=== PATIENT | female | born 1970 | race Caucasian/White ===

== ENCOUNTER 2018-09-16 19:26 | Inpatient (IN) ==
[2018-09-17] MEDS ORDERED: ONDANSETRON INJ 2 MG/ML 2 ML VIAL IV PRN (00:02)
[2018-09-17] MEDS ORDERED: MAGNESIUM HYDROXIDE SUSP 30 ML UDC PO PRN (00:02)
[2018-09-17] MEDS ORDERED: ACETAMINOPHEN 325 MG TAB PO PRN (00:02)
[2018-09-17] MEDS ORDERED: ZOLPIDEM TARTRATE 5 MG TAB PO PRN (00:02)
[2018-09-17] MEDS ORDERED: ALUMINUM/MAGNESIUM SUSP 30 ML UDC PO PRN (00:02)
[2018-09-17] MEDS ORDERED: POLYETHYLENE (MIRALAX) 17 GM PACK PO PRN (00:02)
[2018-09-17] MEDS ORDERED: LORazepam 0.5 MG TAB PO PRN (00:05)
--- NOTE | 2018-09-17 00:07 | History & Physical Report ---
Date of Service September 17, 2018 Assessment & Plan (1) Weakness generalized: Jacky Collins is a 48 y.o female with history of LBBB, anxiety , hypertension, GERD, and IBS who transferred from [facility] for further evaluation of recent episodes of heart palpitations, sob, followed by loss of limb function that started 2 weeks. She is requiring admission on PCU/ Tele. 1. Weakness - Preceded by heart palpitations, sob, and Associated with loss of limb function -Acute in nature and has occurred twice within the last 5 days -Differential: Medication change related vs Brain lesion vs atypical absence seizure vs anxiety vs infectious Lyme/Ehrlichiosis vs Thyroid disorder vs connective tissue disorder vs vitamin deficiency -She is currently calm, coherent, and moving all extremities well -It could be that her recent change in medications and associated electrolyte abnormality of decreased K+ may have caused and underlying cardiac abnormality with trigger of anxiety, of which K+ will be repleted and pt should not resume HCTZ unless she has a K+ regimen -It may be that she has a brain lesion of which an MRI of brain will be helpful. -MRI brain w/wo contrast ordered and results pending. Neuro consulted and will appreciate recommendations. -It may be that she is having a seizure in which an EEG would be helpful. Will let neuro evaluate the pt to determine if EEG is needed -Consider anxiety/psych if other organic etiology ruled out. - Lyme Serology and Ehrlichiosis pending -TSH pending -JOSIAH pending -CBC, BMP, ESR, JOSIAH ordered -B12 and Folate ordered -EKG ordered -Can also consider ECHO to evaluate for valvular dysfunction -Pt admitted to Tele for close monitoring 2. HTN -Will hold Metoprolol and Lisinopril as she has pressure w/in normal limits ( 130s/70s) -Confirm Metoprolol dosing of 25mg with patient as this once daily dosing may impact her current symptoms 3. Anxiety -Currently asymptomatic -Lorazepam as needed per home regimen 4. GERD -Continue Protonix 5. LBBB -Present since age of 22 has been to label stitcher with negative findings -Continue to monitor on Tele 6. Hypokalemia -Will f/u on am labs -replete if needed FEN/GI Fluids: None Electrolytes: Monitor and replace as needed Nutriton: Heart healthy diet Activity: up with assist GI PPX: Protonix DVT PPX: Heparin Code Status: Full Code Dispo: Inpatient admission. Dispo to home when stable. (2) Heart palpitations: (3) Hypertension: (4) GERD (gastroesophageal reflux disease): History of Present Illness Chief Complaint: Chest palpitations, shortness of breath, weakness Primary Care Provider: DHRUV Farah with [facility] Jacky Collins is a 48 y.o female with history of LBBB, anxiety, hypertension, GERD, and IBS who transferred from [facility] for further evaluation of recent episodes of heart palpitations, sob, followed by loss of limb function that started 2 weeks. History per patient and who is at bedside. Two weeks ago Jacky was seen by PCP and it was thought that her blood pressure was not well controlled. At that time she was only on Metoprolol. The metoprolol was discontinued. Lisinopril and HCTZ were started. Apparently she was seen by her PCP on Tuesday 09/12 for a f/u appt and Lisinopril was discontinued with combined Losartan-HCTZ added. On Wednesday 09/13 she took Losartan-HCTZ. During the day she was driving with her in the car and started to have trouble breathing " feeling weird, having palpitations, I could not calm down." She then became unresponsive and her took her to [facility] for evaluation. Per , Jacky was unresponsive for 45-50 minutes. Jacky states that there were moments where she could hear people speaking to her but could not wake up. After 1.5 hrs Jacky regained full function of her limbs. A full work-up of EKG, Troponin, CXR, CBC, BMP, D-dimer was completed with findings significant for K+ of 2.6. K+ was replaced, ativan given, IVF given and she was discharged to home. On 09/15 Jacky had another f/u with PCP and was prescribed Ativan in case of another episode. In addition, Metoprolol was restarted and Lisinopril restarted. Losartan-HCTZ discontinued as it was thought she might have had an allergic reaction to the medication. She took dose of Metoprolol on Saturday, and dose of Lisinopril on Friday 09/15. Saturday afternoon Jacky was sitting on her couch and states that "my whole body would not function", she experienced sensation of heart racing, and "I thought I was going to pass out." She took Ativan but symptoms did not improve. Her states that she became weak/limp and he could not pick her up so he called EMS and she was taken to [facility] ED. In [facility] she had the same labs completed as [place]. In addition CT head performed as negative, CXR negative. UA/Tox screen negative and Troponin negative. She describes feeling paralyzed from the neck down and that it took an hour for her to move her hands. She was given Metoprolol for hypertension and Ativan. They were then transferred to [facility] as the thought she would receive more thorough care here. Jacky states that her PCP wanted to do and MRI and Renal US to evaluate for other causes of these episodes. ROS positive for not feeling like herself these past 5 days. Denies n/v/diarrhea. Denies current life stressors and reports intentional weight loss of 60 pounds over the past year. She has history of anxiety but states that this feels different than prior panic attacks. PMHx 1. HTN 2. GERD 3. IBS 4. LBBB Surgical HX 1. BTL 2. Choecystectomy 3. Colonoscopy with removal of polyps Social History: Lives with . Denies history of tobacco, alcohol, drug use. Allergies Allergy/AdvReac Type Severity Reaction Status Date / Time barium sulfate Allergy Severe HIVES/SWELL Verified 09/16/18 22:08 ING Home Medications Home Medications Medication Instructions Recorded Confirmed Type Lisinopril (Zestril) 20 mg PO QPM #0 04/15/16 09/16/18 History Metoprolol Tartrate (Lopressor) 25 mg PO DAILY #0 04/15/16 09/16/18 History (Lopressor) OMEPRAZOLE (PRILOSEC) 20 mg PO DAILY #0 04/15/16 09/16/18 History lorazepam [Ativan] 0.5 mg PO DAILY PRN 09/16/18 09/16/18 History escitalopram oxalate 10 mg PO DAILY #28 tab 09/17/18 Rx hydroxyzine HCl 25 mg PO HS #28 tab 09/17/18 Rx Past Med/Surg History Social History marital status: Current Living Situation: Spouse Other Information That Helps Us Care for You: No Feels Safe at Home: Yes Safety Concerns: Feels Safe At This Time Smoking Status: Current some day smoker Tobacco Type: cigarettes Do You Dip or Chew Tobacco: No Second Hand Exposure: No Tobacco Cessation Education Requested by Patient: No Hx Alcohol Use: Yes Alcohol type: beer, wine and hard liquor Alcohol Intake Frequency: a few times a week Hx Substance Use: No Beliefs That Will Affect Care: None Preferred Language: Nepali Review of Systems Constitutional: + weakness; no fever, no chills and no body aches Eyes: no diplopia and no worsening vision Ear, Nose, Mouth, Throat: no nasal congestion and no nasal discharge Respiratory: no cough and no dyspnea Cardiovascular: + palpitations and + lightheadedness; no chest pain at rest and no radiating jaw, neck or arm pain Gastrointestinal: no abdominal pain, no nausea, no vomiting, no change in bowel habits and no change in stools Genitourinary (Female): no dysuria and no hematuria Musculoskeletal: no back pain, no neck pain and no joint pain Integumentary: no rash and no lesions Neurologic: no numbness, no paresthesia, no dizziness, no abnormal speech and no memory loss Psychiatric: no behavioral changes, no depression and no difficulty concentrating Endocrine: no fatigue and no flushing Hematologic / Lymphatic: no easy bleeding and no easy bruising Allergy / Immunological: no lip swelling and no tongue swelling Physical Exam 2 Vital Signs (Past 24 Hours): Last Vital Signs Temp 36.6 C 09/16/18 23:12 Pulse 68 09/16/18 23:12 Resp 18 09/16/18 23:12 BP 137/79 09/16/18 23:12 Pulse Ox 97 09/16/18 23:12 Constitutional: well developed, well nourished, + well hydrated and cooperative; not ill appearing and not combative Eyes: PERRL, conjunctivae normal, anicteric sclerae EOM intact bilaterally ENMT: external ear and nose normal, oropharynx normal moist mucus membranes with good dentition Neck: neck supple, negative LAD Respiratory: normal respiratory effort, lungs clear to auscultation no respiratory distress, no labored breathing and no cough Auscultation: no rales, no rhonchi and no wheezes Cardiovascular: Rate/Rhythm: regular rate and regular rhythm Heart Sounds: normal S1, normal S2 and + murmur (grade II/ systolic ejection murmur best heard at Left sternal border) Vessels: normal peripheral pulses and dorsalis pedis pulses present Extremities: normal capillary refill; no edema Gastrointestinal (Abdomen): normal bowel sounds, soft, nontender, no hepatosplenomegaly Musculoskeletal: Head/Neck/Chest: normocephalic, head atraumatic and neck supple Extremities: extremities normal to inspection and + abnormal strength (strength 4/5 bilateral lower extremitites, strength 5/5 bilateral upper extremeties) Skin: no rashes, warm and dry no rashes and no lesions Neurologic: PERRL, EOMI, accommodation nl, no face palsy, no dysarthria CN' s II-XI intact bilaterally and moves all extremities Psychiatric: Orientation: alert and oriented x 3 Eye Contact: good eye contact Results & Data Laboratory Results WBC 11.5 on 09/16 per [facility] UA negative Tox labs negative Troponin negative at [facility] and [facility] Diagnostic Findings CXR negative at [facility] CT head negative at [facility] ECG Additional Comments: EKG at [facility] showing sinus tach with LBB Code Status & VTE Plan Code Status Full Code VTE Prophylaxis Plan VTE Prophylaxis will be ordered: Yes Supervising Physician Co-Signing Physician Notes Attending addendum: I have physically seen this patient, have supervised the medical residents activities, and agree with the H&P unless as otherwise noted. Assessment and Plan: Generalized weakness/palpitations/right lower extremity paresthesias/variable blood pressure and heart rate-- The patient will be admitted to telemetry for serial cardiac enzymes, serial EKG's, cardiac rhythm monitoring and a 2-D echocardiogram with Dopplers. CT of brain negative from previous hospital. Order MRI brain without contrast. Order EEG. In addition to routine labs of CBCD, chemistry profile, magnesium level. Will also add ESR, JOSIAH, B12, folic acid, Lyme and ehrlichiosis testing. May order arterial hypercoagulable workup: Lupus anticoagulant, anticardiolipin antibody, homocystine and beta-2 microglobulin Hold antihypertensives at this time. It appears that her metoprolol tartrate dose of 25 mg daily in the a.m., which as I told the patient, should be a twice daily drug, may be contributing to part of her symptoms. Consult neurology. Remainder of orders and notations as noted.
[2018-09-17] MEDS ORDERED: GADOBUTROL 65ML VIAL IV PRN (05:01)
[2018-09-17 07:02] LABS: Basophils # (auto) 0.01 K/uL (0-0.2); Basophils % (auto) 0.1 %; Eosinophils # (auto) 0.14 K/uL (0-0.5); Eosinophils % (auto) 1.7 %; Hematocrit (blood only) 39.7 % (37-47); Immature Granulocytes # (auto) 0.01 K/uL (0.00-0.02); Immature Granulocytes % (auto) 0.1 %; Lymphocytes # (auto) 1.97 K/uL (1.2-3.4); Lymphocytes % (auto) 23.3 %; Mean Corpuscular Hgb Conc 32.7 g/dL (32-36); Mean Corpuscular Volume 94.7 fL (80-100); Mean Platelet Volume 9.5 fL (7.4-10.4); Monocytes # (auto) 0.77 K/uL (0.11-0.59); Monocytes % (auto) 9.1 %; Neutrophils # (auto) 5.54 K/uL (1.4-6.5); Neutrophils % (auto) 65.7 %; Platelet Count 222 K/uL (130-400); RDW Coefficient of Variation 12.9 % (11.5-14.5); RDW Standard Deviation 44.4 fL (36.4-46.3); Red Blood Count 4.19 M/uL (4.2-5.4); White Blood Count 8.44 K/uL (4.8-10.8)
--- NOTE | 2018-09-17 07:11 | Magnetic Resonance Report ---
MR brain wo/w con HISTORY: 48 years-old Female weakness, concern for brain lesion/mass, acute tachycardia with blurry vision and reported episodes of whole-body paralysis. COMPARISON: CT head 09/16/2018. TECHNIQUE: Multiplanar multisequence MRI of the brain was obtained both with and without the use of 8 .7 mL Gadavist. FINDINGS: [employer] localizer images demonstrate no gross abnormality. There is no restricted diffusion to suggest acute or subacute infarction. Midline structures including the corpus callosum, brainstem, optic tess sm, infundibulum, pituitary and pineal glands appear unremarkable on the sagittal T1 series. No cereb ellar tonsillar herniation. The imaged cervical spine appears unremarkable. There is no acute intracranial hemorrhage, midline shift, abnormal extra-axial collections, hydroceph alus or intracranial mass. There are a few punctate foci of T2/FLAIR prolongation about the subcortic al white matter which are likely of no clinical significance. Gliosis from chronic migraines or early chronic microvascular ischemic changes are differential considerations. There is no abnormal intra-a xial or extra-axial enhancement. Major flow voids appear patent. Trace bilateral mastoid effusions. Mild mucosal thickening of the lef t nasal turbinates, and paranasal sinuses. Orbits are unremarkable. The skull and soft tissues are wi thin normal limits. IMPRESSION: 1. No acute intracranial abnormality. 2. No abnormal enhancement. The above report was generated using voice recognition software. It may contain grammatical, syntax o r spelling errors. Dictated: 09/17/2018 7:00 AM Transcribed: 09/17/2018 7:10 AM Samantha [id number] [email or web address] Electronically signed by: Rony Vega M.D. 09/17/2018 7:32 AM
[2018-09-17 07:20] LABS: Prothrombin Time 10.1 Seconds (9.0-12.0)
[2018-09-17 07:31] LABS: Albumin Level 3.1 gm/dl (3.4-5.0); BUN Creatinine Ratio 11.5 (10-20); Calcium 8.6 mg/dl (8.5-10.1); Creatinine Clr Calc Pharmacy 117.7 ml/min; Est GFR (African American) 117.6; Est GFR (Non-African American) 101.4; Potassium 3.5 mmol/L (3.5-5.1)
[2018-09-17 07:42] LABS: Bilirubin,Total 0.3 mg/dl (0.2-1); Globulin 3.1 gm/dl (2.5-4.0); Total Protein 6.2 gm/dl (6.4-8.2)
[2018-09-17 08:24] LABS: Lyme Ab IgG w/WB Rflx Negative (Negative); Lyme Ab IgM w/WB Rflx Negative (Negative)
[2018-09-17] MEDS ORDERED: HEPARIN SOD 5,000 UNIT/0.5 ML VIAL SQ SCH (09:00)
[2018-09-17] MEDS ORDERED: PANTOprazole 40 MG TAB PO SCH (09:00)
[2018-09-17] MEDS ORDERED: METOPROLOL TARTRATE 25 MG TAB PO SCH (09:00)
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
[2018-09-17 09:23] LABS: Folate (Folic Acid) 17.37 ng/ml (>5.38)
[2018-09-17] MEDS ORDERED: IOVERSOL 100ml IV PRN (11:04)
--- NOTE | 2018-09-17 11:22 | CT Scan Report ---
CT angio neck with con, CT angio head wo/w CLINICAL HISTORY: 48 years-old Female with VBI. Acute weakness with tachycardia, blurry vision and reported episodes of body paralysis COMPARISON STUDY: MRI brain 09/17/2018, CT head 09/16/2017 TECHNIQUE: Following the IV administration of 94 of Optiray 320, CT angiogram of the head and neck wa s performed from the aortic arch to the skull apex. Images are reviewed in the axial, sagittal, and c oronal planes. 3-D MIPS images are created and assessed. IV contrast was administered without complic ation. Additionally, noncontrast CT head was obtained. All measurements were calculated based on NASC ET criteria. A dose lowering technique was utilized adhering to the principles of ALARA. CT DOSE: 1132.81 mGy.cm FINDINGS: CT HEAD: No acute intracranial hemorrhage, midline shift, abnormal extra-axial collections, hydrocephalus, int racranial mass or territorial infarct. Ventricles, cisterns and sulci appear normal. The garcia-white d ifferentiation is preserved. No calvarial fracture. Mastoid air cells and middle ear cavities are clear. Paranasal sinuses also ap pear clear. The orbits and soft tissues are within normal limits. CTA HEAD AND NECK: The visualized pulmonary arterial tree appears unremarkable. Three-vessel morphology of aortic arch a ppears normal. Patency of the imaged bilateral subclavian arteries. The bilateral common carotid milan omar are widely patent and appear normal. The bilateral internal carotid arteries are also unremarkab le and are widely patent. The middle and anterior cerebral arteries appear normal. Anterior communica ting artery is unremarkable. The left vertebral artery is dominant and widely patent. Mild tortuosity about the left V1 segment wi thout high-grade stenosis. The right vertebral artery is also widely patent. Basilar artery is patent and appears normal. Bilateral posterior cerebral arteries appear unremarkable. Several venous sinuse s are also within normal limits. Lung apices appear clear. No pneumothorax. Unremarkable thyroid. No adenopathy or soft tissue mass id entified. Airway appears patent. Mastoid air cells and middle ear cavities are clear. Paranasal sinus es also appear to be generally clear. Mild degenerative changes noted about the cervical spine. IMPRESSION: 1. No acute intracranial abnormality. 2. Unremarkable CTA of the head and neck without aneurysm, dissection, high-grade stenosis or proxima l branch occlusion. The above report was generated using voice recognition software. It may contain grammatical, syntax o r spelling errors. Electronically signed by: Rony Veag M.D. 09/17/2018 11:21 AM
--- NOTE | 2018-09-17 17:13 | Procedure Note ---
EEG Procedure Note Date of Service September 17, 2018 Start / End Times Start Time: 9:10 AM End Time: 9:30 AM Referring Physician Aleksander Alvarado History This is a 48-year-old female with seizure-like activity. EEG for further evaluation of possible seizure etiology. Home Medication List Home Medications Medication Instructions Recorded Confirmed Type Lisinopril (Zestril) 20 mg PO QPM #0 04/15/16 09/16/18 History Metoprolol Tartrate (Lopressor) 25 mg PO DAILY #0 04/15/16 09/16/18 History (Lopressor) OMEPRAZOLE (PRILOSEC) 20 mg PO DAILY #0 04/15/16 09/16/18 History lorazepam [Ativan] 0.5 mg PO DAILY PRN 09/16/18 09/16/18 History escitalopram oxalate 10 mg PO DAILY #28 tab 09/17/18 Rx hydroxyzine HCl 25 mg PO HS #28 tab 09/17/18 Rx Inpatient Medication List Acetaminophen (Tylenol) 650 mg PO Q4H PRN PRN Reason: pain/fever Stop: 10/17/18 00:01 Last Admin: 09/17/18 05:12 Dose: 650 mg Gadobutrol (Gadavist 65ml) 8.7 ml IV ONCE PRN PRN Reason: Interaction Checking Stop: 09/21/18 05:00 Last Admin: 09/17/18 04:42 Dose: 8.7 ml Heparin Sodium (Porcine) (Heparin Sodium (Porcine)) 5,000 units SQ Q12 NIKUNJ Stop: 10/17/18 08:59 Last Admin: 09/17/18 09:36 Dose: 5,000 units Ioversol (Optiray 320 100ml) 94 ml IV ONCE PRN PRN Reason: Interaction Checking Stop: 09/21/18 11:03 Last Admin: 09/17/18 11:04 Dose: 94 ml Lorazepam (Ativan) 0.5 mg PO DAILY PRN PRN Reason: Anxiety Stop: 10/17/18 00:04 Last Admin: 09/17/18 08:57 Dose: 0.5 mg Metoprolol Tartrate (Lopressor) 25 mg PO DAILY NIKUNJ Stop: 10/17/18 08:59 Last Admin: 09/17/18 08:57 Dose: 25 mg Pantoprazole Sodium (Protonix) 40 mg PO QAM NIKUNJ Stop: 10/17/18 08:59 Last Admin: 09/17/18 08:57 Dose: 40 mg Description This is a 21 electrode EEG with a single channel dedicated to limited EKG. The electrodes were placed in accordance with the International 10-20 system. At the start of the recording the patient was in an awake state. Background was well organized and composed of symmetric mixed alpha and beta frequencies. There was a symmetric well-formed moderate amplitude 10-11 Hz posterior dominant rhythm that was reactive to eye opening and closure. Hyperventilation was not done. Intermittent photic stimulation at various frequencies produced no abnormalities. Drowsiness was indicated by loss of muscle artifact and slowing of the background rhythm. There was no sleep transients. manufacturing process technician noted left leg twitching during photic stimulation. There was no changes to the EEG background and no epileptiform discharges. Interpretation This is a normal awake and drowsy routine EEG. There was no electrographic seizures or epileptiform discharges. Clinical Correlation A normal EEG does not rule out epilepsy if there is a strong clinical suspicion. Clinical symptoms of left leg twitching during photic stimulation had no EEG correlation and was non-epileptic
--- NOTE | 2018-09-17 18:40 | Discharge Summary ---
Date of Service September 17, 2018 Admission HPI Per Admitting Provider Jacky Collins is a 48 y.o female with history of LBBB, anxiety, hypertension, GERD, and IBS who transferred from [facility] for further evaluation of recent episodes of heart palpitations, sob, followed by loss of limb function that started 2 weeks. History per patient and who is at bedside. Two weeks ago Jacky was seen by PCP and it was thought that her blood pressure was not well controlled. At that time she was only on Metoprolol. The metoprolol was discontinued. Lisinopril and HCTZ were started. Apparently she was seen by her PCP on Tuesday 09/12 for a f/u appt and Lisinopril was discontinued with combined Losartan-HCTZ added. On Wednesday 09/13 she took Losartan-HCTZ. During the day she was driving with her in the car and started to have trouble breathing " feeling weird, having palpitations, I could not calm down." She then became unresponsive and her took her to [facility] for evaluation. Per , Jacky was unresponsive for 45-50 minutes. Jacky states that there were moments where she could hear people speaking to her but could not wake up. After 1.5 hrs Jacky regained full function of her limbs. A full work-up of EKG, Troponin, CXR, CBC, BMP, D-dimer was completed with findings significant for K+ of 2.6. K+ was replaced, ativan given, IVF given and she was discharged to home. On 09/15 Jacky had another f/u with PCP and was prescribed Ativan in case of another episode. In addition, Metoprolol was restarted and Lisinopril restarted. Losartan-HCTZ discontinued as it was thought she might have had an allergic reaction to the medication. She took dose of Metoprolol on Saturday, and dose of Lisinopril on Friday 09/15. Saturday afternoon Jacky was sitting on her couch and states that "my whole body would not function", she experienced sensation of heart racing, and "I thought I was going to pass out." She took Ativan but symptoms did not improve. Her states that she became weak/limp and he could not pick her up so he called EMS and she was taken to [facility] ED. In [facility] she had the same labs completed as [place]. In addition CT head performed as negative, CXR negative. UA/Tox screen negative and Troponin negative. She describes feeling paralyzed from the neck down and that it took an hour for her to move her hands. She was given Metoprolol for hypertension and Ativan. They were then transferred to [facility] as the thought she would receive more thorough care here. Jacky states that her PCP wanted to do and MRI and Renal US to evaluate for other causes of these episodes. ROS positive for not feeling like herself these past 5 days. Denies n/v/diarrhea. Denies current life stressors and reports intentional weight loss of 60 pounds over the past year. She has history of anxiety but states that this feels different than prior panic attacks. PMHx 1. HTN 2. GERD 3. IBS 4. LBBB Surgical HX 1. BTL 2. Choecystectomy 3. Colonoscopy with removal of polyps Social History: Lives with . Denies history of tobacco, alcohol, drug use. Principal Diagnosis Anxiety with Panic Attacks Discharge Exam General: A&Ox3. NAD. Cooperative. HEENT: Atraumatic, normocephalic. Pulm: CTAB A&P. -wheezes, -rales, -rhonchi. Symmetrical chest rise. No respiratory distress. Cardiac: RRR, -mrg. Radial pulses intact and symmetrical. Abdominal: Nontender, nondistended, soft. BS present. Discharge Data Allergies Allergy/AdvReac Type Severity Reaction Status Date / Time barium sulfate Allergy Severe HIVES/SWELL Verified 09/16/18 22:08 ING Consultations 09/17/18 00:02 Consult Neurology Routine 09/17/18 00:04 Consult Case Management - Discharge Planning Routine Ordered Studies 09/17/18 02:32 MR brain wo/w con Urgent 09/17/18 08:43 CT angio head wo/w Routine CT angio neck with con Routine Hospital Course (1) Weakness generalized: Jacky Collins is a 48yo F with a PMHx of LBBB, anxiety, hypertension, GERD, and IBS who was transferred to [facility] for evaluation of heart palpitations, shortness of breath, and 2 weeks of fatigue/weakness. Weakness, Generalized On admission she reported weakness preceded by heart palpitations and shortness of breath which had occured acutely twice in the past week on a background of several weeks of fatigue. MRI-B showed no lesions or masses, TSH was normal, and routine blood work including CBC, BMP, TSH, and ESR were unremarkable. B12 was borderline low. Her EKG showed no acute changes, telemetry showed sinus rhythm with occasional PVCs. She was able to ambulate to the restroom and had 5/ 5 strength on physical exam, but was felt fatigued throughout. On exploration she has a history of very poor sleep with a history concerning for sleep apnea and anxiety. Her weakness was most likely due to severe anxiety with panic attacks on a background fo sleep apnea causing increased fatigue. She had full strength on active movement. (2) Heart palpitations: She was maintained on telemetry during admission and was in normal sinus rhythm with PVCs. Her ECHO showed some decreased wall motion and changes consistent with hypertension. Troponin was negative. No arrythmia was noted. Palpitations were most consistent with anxiety and perception of her PVCs. (3) GERD (gastroesophageal reflux disease): GERD prophylaxsis was maintained with protonix 40mg daily. (4) Stroke-like episode: On admission her presentation of weakness was concerning for a stroke like episode. On history she never had any loss of conciousness. Neurology was consulted, her MRI and EEG were normal. She had full strength to active motion with qualitative fatigue. Her presentation was felt to be consistent with anxiety/panic attacks with fatigue on a background of CAR. (5) Anxiety: Jacky has a history of anxiety with panic attacks. She endorsed feelings of anxiety and palpitations consistent with an acute on chronic anxiety exacerbation. Various options were discussed for treatment. She was started on escitalopram 10mg with followup to her PCP for futher titration/management. Stress management exercises were discussed. She was advised to use her lorazepam very sparingly as it can worsener her anxiety in the senior living. (6) CAR (obstructive sleep apnea): Her history of snoring, poor feelings of energy following sleep, and body habitus were all concerning for sleep apnea. Her ECHO showed signs of hypertension which may be 2/2 underlying sleep apnea. She was discharged to followup with her PCP for sleep study referral. (7) Hypertension: Her ECHO showed signs of hypertension. During admission she was maintained on lisinopril and a single dose of metoprolol tartrate with systolic BP 137-169. She was discharged to resume her NEGATIVE SPOTTER lisinopril and metroprolol tartrate. Total Time Total Time Spent Total Time Spent (In Minutes): 60 Discharge Plan Discharge Items Patient Disposition: Home - Self-Care Reason For Visit: WEAKNESS Discharge Diagnosis: Panic attacks Condition: Good Discharge Goals: Improve function, Learn about illness and Therapeutic intervention Activity: Resume your previous activity Non-emergency contact: Primary Care Provider Call non-emergency contact if: your symptoms worsen Follow-up/Referrals: Margie Jones CRNP [Primary Care Provider] - Diet: Regular Addtl Provider Instructions: You were admitted to the hospital with a concerning constellation of symptoms, for which extensive lab work and imaging was done to rule out the big, bad, scary things. At present, we have successfully ruled out scary cardiac issues. You have some occasional extra hearts beats (PVCs) that you may feel as heart flutters, but these are not harmful. There is no evidence of brain tumor, stroke, seizure, poor blood flow in the neck or brain, or multiple sclerosis. The neurologist agrees that a neurological cause is not likely. There is low suspicion of of autoimmune condition given no elevation in your inflammatory markers. The JOSIAH level is pending on discharge, but we have low suspicion that it will yield any useful information/diagnosis. Your thyroid level is good. There is no evidence of infection as a cause. After this work up, we feel that your symptoms are most consistent with a panic attack. We hope these can be minimized or avoided in the future with ongoing management of underlying causes. Anxiety: With underlying anxiety, previously managed by citalopram, this is likely the main contributor of your panic attacks. We discussed various changes to implement in your life to help, such as: 1) Start a sister medication called escitalopram, 1 tablet daily. It may take time to fully work, but we hope this helps to bring the baseline intensity of your anxiety down. At follow up with your PCP, modification of this medication or dose should be discussed. 2) Find ways to de-stress. This may include: exercise, reflection via meditation , journaling etc., calling a friend, listening to your favorite music, doing something you enjoy, or perhaps formal therapy would be beneficial for you. 3) Use your home lorazepam VERY sparingly. It works, but becomes less effective with continued use. And withdrawal symptoms after frequent use often make people feel worse than they did initially. Sleep: It is difficult to determine if your sleep is making your anxiety worse or if your anxiety is leading to poor sleep. Poor sleep in turn can cause fatigue and general weakness/low energy. As such: 1) Hydroxyzine has been prescribed to use before bed, to help both treat anxiety that is keeping you awake and has the added side effect of causing drowziness. Some people prefer to take this medication after dinner, so it takes effect by the time they go to bed. 2) Given that you snore, there is a high concern for sleep apnea. A home sleep study is highly advised to determine if you would benefit from overnight use of CPAP to help provide you with more restful sleep. Your PCP will provide a referral for this test. Blood pressure: A combination of genetics, stress, anxiety, poor sleep, high salt in your diet, excess weight, and situations can all cause fluctutations in blood pressure in everyone. As you tackle both sleep and anxiety, we feel your blood pressure might improve. 1) Continue your metoprolol and lisinopril as prescribed. 2) Work on sleep and anxiety as discussed. 3) Discuss your BP at follow up appointments with your PCP to continue to monitor it and see if any medications need to be changed. 4) Your echo shows some chronic changes including indication of bundle branch block (which you are already aware of) and irregular wall movement. This can happen over time with high blood pressure, among other causes. The echo does not indicate any acute issues. As we do not have previous echos, we cannot offer comparison of change advisor time. Thus, this should be followed up by a distribution lineman. If you do not already see a distribution lineman, discuss the need for an outpatient referral with your PCP. Continue all other medications as prescribed. If you have any questions about your symptoms, especially if they do not subside with time, or are different and concerning to you, call your PCP's office and ask for advice. They may want to see you sooner than your next appointment. We recommend follow up with your PCP in 1-2 weeks, and then monthly, until your symptoms are better controlled. And again, a cardiology referral may be warranted. Prescriptions: New hydroxyzine HCl 25 mg tablet 25 mg PO HS Qty: 28 RF: 0 escitalopram oxalate 10 mg tablet 10 mg PO DAILY Qty: 28 RF: 0 Continue Lisinopril (Zestril) 10 MG tablet 20 mg PO QPM Qty: 0 RF: 0 Metoprolol Tartrate (Lopressor) (Lopressor) 25 MG tablet 25 mg PO DAILY Qty: 0 RF: 0 OMEPRAZOLE (PRILOSEC) 20 MG CONTR REL CAP 20 mg PO DAILY Qty: 0 RF: 0 lorazepam [Ativan] 0.5 mg tablet 0.5 mg PO DAILY PRN (Reason: Anxiety) RF: 0 Stand-Alone Forms: My [facility] [employer], Work/School Release (Inpt) Krames/Other Patient Handouts: Snoring Sleep Apnea, Disorder Generalized Anxiety Discharge Orders: Discharge Order (Routine); Ordered 09/17/18 Ordered By: Kajal Ahuja Admission Data Admit Date/Time: 09/16/18 21:58 Attending Provider: Kavon Singh Admit Provider: Chemo Noland Primary Care Provider: Margie Jones Other Providers: Aleksander Alvarado ; Rashad Bravo III ; Floridalma Michel ; Samira Hoff ; Lokesh Beltran ; Chemo Noland Service: Telemetry Other Interventions: Discharge Summary Assessment (RN) Last Done: 09/17/18 17:36 Pending Studies at Discharge: Yes Studies:: JOSIAH DC Date/Time DO NOT enter until pt leaves facility: 09/17/18 18:12 Supervising Physician Co-Signing Physician Notes I personally examined the patient and verified all amor points of history and exam, discussed case, and agree with decision making with Dr Sharma. Extensive discussion in regards to the patient's symptoms, she feels about the same. Her workup was discussed in detail etiologies discussed on how they were ruled out, and discussed that sleep issues whether it be anxiety induced insomnia, sleep apnea, or both, likely have a driving factor in how she is been feeling. We strongly recommended a sleep study as well as treatment for the anxiety. Also discussed that the anxiety itself likely has a large contributor to how she is feeling, and we had an extensive discussion about not only medication management for this but lifestyle management, mind body type management, discussions with her on how she is feeling, etc. Vitals noted, in general she is awake and alert fatigued but no distress. HEENT normal cephalic atraumatic mucous membranes are moist. Mental status shows a mildly flat affect but she opens up with extensive discussions, good judgment and insight overall Weaknessprobably an interplay of sleep issues and anxiety as above. Sleep study once a can be arranged, anxiety medications as above, holistic treatment as discussed. Close follow-up, stable for home
[2018-09-17] MEDS ORDERED: LISINOPRIL 20 MG TAB PO SCH (21:00)
[2018-09-19 17:02] LABS: Anti Nuclear Antibody Screen NEGATIVE (NEGATIVE); Ehrlichia chaff IgG Ab <1:64 (<1:64); Ehrlichia chaff IgM Ab <1:20 (<1:20)
== END 2018-09-17 18:12 | disposition home or self-care (01) | DRG 880 ==
LOC: 2S → OBSVTOIN 21:58 → SUATTDRO 21:58